=== PATIENT | female | born 1965 | race Caucasian/White ===

== ENCOUNTER 2018-05-21 21:11 | Emergency (ER) | payer BC ==
[2018-05-21 21:27] VITALS: BP 167/100
--- NOTE | 2018-05-21 22:12 | RADIOLOGY REPORT (SQ) ---
EXAM DESCRIPTION: CT HEAD WITHOUT COMPLETED DATE/TIME: 05/21/2018 10:00 pm REASON FOR STUDY: bad headache with elevated BP COMPARISON: None. TECHNIQUE: Axial images acquired through the brain without intravenous contrast. Images reviewed wi th bone, brain and subdural windows. Additional sagittal and coronal reconstructions were generated. Images stored on PACS. All CT scanners at this facility use dose modulation, iterative reconstruction, and/or weight based d osing when appropriate to reduce radiation dose to as low as reasonably achievable (ALARA). [facility]: Dose Right [facility]: CareDose [facility]: Dose Right [facility]: Teradose 4D [facility]: [employer] RADIATION DOSE: CT Rad equipment meets quality standard of care and radiation dose reduction techniq ues were employed. CTDIvol: 53.2 mGy. DLP: 964 mGy-cm. mGy. LIMITATIONS: None. FINDINGS: VENTRICLES: Normal size and contour. CEREBRUM: No masses. No hemorrhage. No midline shift. No evidence for acute infarction. Normal gra y/white matter differentiation. No areas of low density in the white matter. CEREBELLUM: No masses. No hemorrhage. No alteration of density. No evidence for acute infarction. EXTRAAXIAL SPACES: No fluid collections. No masses. ORBITS AND GLOBE: No intra- or extraconal masses. Normal contour of globe without masses. CALVARIUM: No fracture. PARANASAL SINUSES: No fluid or mucosal thickening. SOFT TISSUES: No mass or hematoma. OTHER: No other significant finding. IMPRESSION: NORMAL BRAIN CT WITHOUT CONTRAST. EVIDENCE OF ACUTE STROKE: NO. COMMENT: Quality ID # [id number]: Final reports with documentation of one or more dose reduction techniques (e.g., Automated exposure control, adjustment of the mA and/or kV according to patient size, use of iterative reconstruction technique) TECHNICAL DOCUMENTATION: JOB ID: [id number] [employer]- All Rights Reserved Reading location - IP/workstation name: [email or web address]
--- NOTE | 2018-05-21 23:29 | ER Document Report ---
ED Medical Screen (RME) - General Chief Complaint: Headache Stated Complaint: BLOOD PRESSURE PROBLEM,HEADACHE Time Seen by Provider: 05/21/18 23:25 Mode of Arrival: Ambulatory Information source: Patient Notes: Patient is an otherwise healthy 52-year-old female who presents with chief complaint of elevated blood pressure and headache. Patient reports this is been ongoing for several days now and is intermittent in nature. 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 Patient had an associated headache at that time that she described as a global headache. Her symptoms resolved through the night. Patient reports that headaches have returned, she does have a history of migraines but this does not feel like a typical migraine. Patient reports that the headache is in her blood pressure continues to be elevated. Patient reports that prior to coming to the emergency department she checked her blood pressure at a local pharmacy and it was found to be 150/110. Patient denies any nausea or vomiting. Patient denies any light or noise sensitivity. Head CT was already initiated prior to seeing this patient. Exam: Patient calm, cooperative speaking in full sentences. Lung sounds clear to auscultation bilaterally. No acute distress noted. I have greeted and performed a rapid initial assessment of this patient. A comprehensive ED assessment and evaluation of the patient, analysis of test results and completion of the medical decision making process will be conducted by additional ED providers. Dictation of this chart was performed using voice recognition software; therefore, there may be some unintended grammatical errors. TRAVEL OUTSIDE OF THE [place] IN LAST 30 DAYS: No Past Medical History - Social History Chew tobacco use (# tins/day): No Frequency of alcohol use: None Drug Abuse: None Neurological Medical History: Reports: Hx Migraine Renal/ Medical History: Denies: Hx Peritoneal Dialysis Physical Exam - Vital signs Vitals: Temp Pulse Resp BP Pulse Ox 98.3 F 98 18 167/100 H 98 05/21/18 21:11 05/21/18 21:11 05/21/18 21:11 05/21/18 21:11 05/21/18 21:11 Course - Vital Signs Vital signs: Temp Pulse Resp BP Pulse Ox 98.3 F 98 18 167/100 H 98 05/21/18 21:11 05/21/18 21:26 05/21/18 21:26 05/21/18 21:26 05/21/18 21:26
[2018-05-22] MEDS ORDERED: METOCLOPRAMIDE HCL INJ/PF 10 MG/2 ML SDV IV ONE (01:18)
[2018-05-22] MEDS ORDERED: DIPHENHYDRAMINE HCL 50 MG/ML VIAL IV ONE (01:19)
[2018-05-22] MEDS ORDERED: NORMAL SALINE 1000 ML 1,000 ML IV ONE (01:19)
[2018-05-22 03:14] LABS: ABSOLUTE EOSINOPHILS # (AUTO) 0.2 10^3/uL (0.0-0.6); ABSOLUTE MONOCYTES (AUTO) 0.9 10^3/uL (0.1-1.4); BASOPHILS % (AUTO) 0.5 % (0-2); HEMATOCRIT 43.4 % (36.0-47.0); HEMOGLOBIN 14.9 g/dL (12.0-15.5); LYMPHOCYTES % (AUTO) 36.7 % (13-45); MEAN CORPUSCULAR HEMOGLOBIN 29.9 pg (27.0-33.4); MEAN CORPUSCULAR HGB CONC 34.4 g/dL (32.0-36.0); MEAN CORPUSCULAR VOLUME 87 fl (80-97); MONOCYTES % (AUTO) 10.9 % (3-13); PLATELET COUNT 354 10^3/uL (150-450); RED BLOOD COUNT 4.99 10^6/uL (3.72-5.28); SEGMENTED NEUTROPHILS % (AUTO) 49.9 % (42-78); TOTAL CELLS COUNTED % (AUTO) 100 %; WHITE BLOOD COUNT 8.1 10^3/uL (4.0-10.5)
[2018-05-22 03:29] LABS: ANION GAP 12 (5-19); BLOOD UREA NITROGEN 12 mg/dL (7-20); CALCIUM 9.7 mg/dL (8.4-10.2); CARBON DIOXIDE 24 mmol/L (22-30); CHLORIDE 107 mmol/L (98-107); GLUCOSE 90 mg/dL (75-110); SODIUM 143.2 mmol/L (137-145)
--- NOTE | 2018-05-22 04:04 | ER Document Report ---
ED General - General Chief Complaint: Headache Stated Complaint: BLOOD PRESSURE PROBLEM,HEADACHE Time Seen by Provider: 05/21/18 23:25 Mode of Arrival: Ambulatory Notes: Patient is 52-year-old female presents with complaint of headache that has been intermittent now for several days. Patient says that the headache comes on gradually continues to gradually worsened and then goes away but then comes back again. No associated neck stiffness. She does have history of migraines but says this does feel differently. 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 She says that she start checking her blood pressure when she has headaches and notes that her blood pressure is high. She does have a family history concerning for cerebral aneurysm and that her mother at that age 36 from a non-traumatic bleed in her brain. She denies any weakness or numbness into her extremities. No difficulty walking. No slurred speech. No other complaints at this time. She is not on any antihypertensive medications. Her last physical was just under a year ago and she said her blood pressure was normal at that time. TRAVEL OUTSIDE OF THE [place] IN LAST 30 DAYS: No Past Medical History - General Information source: Patient - Social History Smoking Status: Never Smoker Chew tobacco use (# tins/day): No Frequency of alcohol use: None Drug Abuse: None Family History: Reviewed & Not Pertinent Patient has suicidal ideation: No Patient has homicidal ideation: No Neurological Medical History: Reports: Hx Migraine Renal/ Medical History: Denies: Hx Peritoneal Dialysis Review of Systems - Review of Systems Notes: My Normal Review Basic REVIEW OF SYSTEMS: CONSTITUTIONAL : Denies fever, chills, or sweats. Denies recent illness. EENT: Denies eye, ear, throat, or mouth pain or symptoms. Denies nasal or sinus congestion. CARDIOVASCULAR: Denies chest pain. RESPIRATORY: Denies cough, cold, or chest congestion. Denies shortness of breath, difficulty breathing, or wheezing. GASTROINTESTINAL: Denies abdominal pain. Denies nausea, vomiting, or diarrhea. MUSCULOSKELETAL: Denies neck or back pain or joint pain or swelling. SKIN: Denies rash or skin lesions. HEMATOLOGIC : Denies easy bruising or bleeding. NEUROLOGICAL: Denies altered mental status or loss of consciousness. Has a headache. Denies weakness or paralysis or loss of use of either side. Denies problems with gait or speech. Denies sensory or motor loss. ALL OTHER SYSTEMS REVIEWED AND NEGATIVE. Physical Exam - Vital signs Vitals: Temp Pulse Resp BP Pulse Ox 98.3 F 98 18 167/100 H 98 05/21/18 21:11 05/21/18 21:11 05/21/18 21:11 05/21/18 21:11 05/21/18 21:11 - Notes Notes: General Appearance: Well nourished, alert, cooperative, no acute distress, mild obvious discomfort. Vitals: reviewed, See vital signs table. Head: no swelling or tenderness to the head Eyes: PERRL, EOMI, Conjuctiva clear Mouth: No decreasd moisture Throat: No tonsillar inflammation, No airway obstruction, No lymphadenopathy Neck: Supple, no neck tenderness, full range of motion of the neck on exam. No stiffness. Lungs: No wheezing, No rales, No rhonci, No accessory muscle use, good air exchange bilaterally. Heart: Normal rate, Regular rythm, No murmur, no rub Abdomen: Normal BS, soft, No rigidity, No abdominal tenderness, No guarding, no rebound, no abdominal masses, no organomegaly Extremities: strength 5/5 in all extremities, good pulses in all extremities, no swelling or tenderness in the extremities, no edema. Skin: warm, dry, appropriate color, no rash Neuro: speech clear, oriented x 3, normal affect, responds appropriately to questions. Cranial nerves II through XII are intact. Distal sensation intact. Patient moves all extremities without difficulty. Normal Romberg. Course - Re-evaluation Re-evalutation: 05/22/18 05:10 CT scan was ordered in triage and was negative. Patient's headache pattern is not consistent with subarachnoid hemorrhage in the headaches are gradual in onset and are intermittent and never maximal in onset. However, the patient does have a family history of her mother dying from a intracranial bleed in her 30s which sounds very consistent with that of a aneurysmal or subarachnoid hemorrhage. I therefore talked at length about workup for subarachnoid hemorrhage. I had this discussion with her before she received any medications and therefore she was not under any type of influence of medications before making these decisions. I talked her about the workup for including both lumbar puncture and CT of the head. I informed her that CT of the head is sensitive but is not 100% sensitive to rule out subarachnoid hemorrhage and that the only test 100% sensitive his lumbar puncture and as well would recommend lumbar puncture. 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 I did discuss risks and benefits of LP P with her and she still does not want this performed in requests just to have a CTA done. CT was negative. Patient's blood pressures improving. She is very comfortable. On reexamination. I informed her that I will start her on a low-dose hydrochlorothiazide for high blood pressure as her headaches may just be related to hypertension. I informed her that CT is negative however again this is not 100% ruling out subarachnoid hemorrhage or small aneurysms therefore she is of a low threshold to return to ER if she has recurrent worsening headaches, vomiting, or feels unwell in any way. Patient also to follow-up closely with her primary care doctor in [place]. I talked her about the potential side effects of hydrochlorothiazide and to return to ER immediately if she has any dizziness, lightheadedness, confusion, shortness of breath, or feels unwell. Patient agrees with plan will be discharged home. Dictation of this chart was performed using voice recognition software; therefore, there may be some unintended grammatical errors. - Vital Signs Vital signs: Temp Pulse Resp BP Pulse Ox 98.3 F 98 18 167/100 H 98 05/21/18 21:11 05/21/18 21:26 05/21/18 21:26 05/21/18 21:26 05/21/18 21:26 - Laboratory Result Diagrams: 05/22/18 02:40 05/22/18 02:40 Discharge - Discharge Clinical Impression: Headache Qualifiers: Headache type: unspecified Headache chronicity pattern: episodic headache Intractability: not intractable Qualified Code(s): R51 - Headache Hypertension Qualifiers: Hypertension type: unspecified Qualified Code(s): I10 - Essential (primary) hypertension Condition: Good Disposition: HOME, SELF-CARE Additional Instructions: Please take the high blood pressure medication as prescribed. Please return to the ER immediately if you develop fevers, vomiting, sudden onset severe headache , weakness or numbness into your extremities, chest pain, difficulty breathing, or feel unwell. Your CTA of your head tonight was negative for any cerebral aneurysms. As discussed with you, this is sensitive in picking up cerebral aneurysms but is not 100% sensitive. The only test 100% sensitive to rule out a bleeding aneurysm is a lumbar puncture. We respect your decision not to have this test performed, but want you to have a low threshold to return to the ER immediately if you have a sudden onset severe headache, vomiting, or an intractable headache. Follow up with your doctor in [place] as soon as you get back home. Prescriptions: Hydrochlorothiazide 12.5 mg PO DAILY #30 capsule
--- NOTE | 2018-05-22 04:29 | RADIOLOGY REPORT (SQ) ---
EXAM DESCRIPTION: CT HEAD ANGIOGRAPHY WITHOUT THEN WITH IV CONTRAST COMPLETED DATE/TME: 05/22/2018 01:19 CLINICAL HISTORY: 52 years Female, headache Comparison: None. Technique: IV contrast. This exam was performed according to our departmental dose-optimization program, which includes automated exposure control, adjustment of the mA and/or kV according to patient size and/or use of iterative reconstruction technique. [facility]: Dose Right [facility]: CareDose [facility]: Dose Right [facility]: Teradose 4D [facility]: [employer] LIMITATIONS: Axial images only. Findings: CTA, head: Intact [place]. No aneurysm. No occlusion. No vasculitides. Other: None. Impression: No acute findings. Limitation.
== END 2018-05-22 05:30 | disposition home or self-care (01) ==
LOC: ER 21:11
DX: R51 Headache (principal); I10 Essential (primary) hypertension
CPT/HCPCS: 99284; 96361; 96374; 96375; 36415; 85025; 80048; 70450; 70496; J1200; J2765; J7030